=== PATIENT | female | born 1980 | race Caucasian/White ===

== ENCOUNTER 2024-03-09 01:07 | Outpatient (CLI) | payer BC, SELFPAY ==
[2024-03-09] VITALS (8 sets, daily range): BP systolic 114–148; BP diastolic 57–87; PULSE 71–88; RESP 18; TEMP 36.4
--- NOTE | 2024-03-09 04:12 | PC.OBNST ---
NST Note NST Note Start: 03/09/24 01:15 Freq: ONCE Status: Active Protocol: Document 03/09/24 04:10 DINO (Rec: 03/09/24 04:12 DEONTELOUIS [id number]) NST Note 5 Para (# of births) 4 EDC 04/07/24 Gestational Age In Weeks & Days 35 Weeks & 6 Days High Risk Factors Diabetes - Gestational Insulin ,Advanced Maternal Age,History of Labor/Delivery Patient Presented with Complaint(s) of Contractions/cramping, Decreased movement Reactive Yes RN Lucian Esparza, RN Date 03/09/24 Reactive Yes NAT Mahan RN OB NST charge Yes Complete NST Note via Write Note Yes The provider's electronic signature indicates the NST is reactive/appropriate for gestational age. *Note to provider: If an addendum is required, open the patient's chart and click on the note under the Nurse/Allied Health tab.
--- NOTE | 2024-03-26 12:22 | PC.OBNST ---
NST Note NST Note Start: 03/09/24 01:15 Freq: ONCE Status: Discharge Protocol: Document 03/09/24 04:10 DINO (Rec: 03/09/24 04:12 DEONT[place]IS [id number]) NST Note 5 Para (# of births) 4 EDC 04/07/24 Gestational Age In Weeks & Days 35 Weeks & 6 Days High Risk Factors Diabetes - Gestational Insulin ,Advanced Maternal Age,History of Labor/Delivery Patient Presented with Complaint(s) of Contractions/cramping, Decreased movement Reactive Yes RN Lucian Esparza, RN Date 03/09/24 Reactive Yes NAT Mahan RN OB NST charge Yes Complete NST Note via Write Note Yes The provider's electronic signature indicates the NST is reactive/appropriate for gestational age. *Note to provider: If an addendum is required, open the patient's chart and click on the note under the Nurse/Allied Health tab.
== END 2024-03-09 03:58 | disposition home or self-care (01) ==
LOC: OB OUT 01:08 → OB 01:08
PROVIDERS: PCP Physician Assistant Medical; Visit Provider Family Medicine
DX: O47.03 False labor before 37 completed weeks of gestation, third trimester (principal); O36.8130 Decreased fetal movements, third trimester, not applicable or unspecified; Z3A.35 35 weeks gestation of pregnancy
CPT/HCPCS: 59025; G0463

== ENCOUNTER 2024-03-29 17:24 | Outpatient (CLI) | payer BC, SELFPAY ==
[2024-03-29 17:55] VITALS: PULSE 83; O2SAT 98
[2024-03-29 18:08] VITALS: BP 134/74; PULSE 77; TEMP 36.8
--- NOTE | 2024-03-29 18:25 | P.OBHP_ITS ---
OB - H&P: HPI Labor/Induction History of Present Illness Date Seen: 03/29/24 Chief Complaint: The patient is a 43 year old 5 para 4 at 38+5 weeks gestation by LMP and confirmed with 1st trimester US, who presents with IOL for insulin dependent gestational diabetes with moderately good control. Chief complaint: Maternity Narrative: Deb Leon is a 43 year old at 38+5 weeks by LMP who is here for IOL for IDGDM. She has been having increased insulin needs over the last week and although fasting glucose levels are within range, she has about 50% out of range after meals. . is also complicated by AMA and prior delivery. She reports intermittent contractions, primarily in the evenings, but no LOF. Baby is active. NO swelling, headaches or abdominal pain. History of Present Dating criteria: based on LMP care: good care Ultrasounds: normal 1st trimester US and normal mid trimester US complications: gestational diabetes Labs Blood type: O (+) positive Rubella: immune RPR/VDLR: nonreactive GBS status: positive HBsAG: negative Review of Systems Status of ROS: Reports: 10 or more systems reviewed and unremarkable except as noted in History and below Meds Home Medications and Allergies Home Medications Medication Instructions Recorded Confirmed Type aspirin 81 mg chewable tablet 1 tab PO DAILY 12/17/23 03/29/24 History vitamin 1 tab PO DAILY 12/17/23 03/29/24 History no.76-iron,carbonyl 29 mg iron-folic acid 1 mg tablet (Prenatabs Rx) progesterone micronized 100 mg 1 insert vaginal QHS 12/17/23 03/29/24 History vaginal insert acetone (urine) test (Ketostix 03/09/24 03/09/24 History strips) blood sugar diagnostic (Accu-Chek 03/09/24 03/09/24 History Guide test strips) blood-glucose sensor (FreeStyle 03/09/24 03/09/24 History Alvin 3 Sensor device) ferrous sulfate 325 mg (65 mg 325 mg PO Q OTHER DAY 03/09/24 03/29/24 History iron) tablet (Feosol) insulin glargine 100 unit/mL (3 unit subcut 03/29/24 History mL) subcutaneous pen (Lantus Solostar U-100 Insulin) Allergies Allergy/AdvReac Type Severity Reaction Status Date / Time sertraline [From Zoloft] Allergy Intermediate Verified 12/17/23 09:20 OB - H&P: Exam Physical Exam: Vital signs: Temp Pulse BP Pulse Ox 98.3 F 77 134/74 98 03/29/24 18:08 03/29/24 18:08 03/29/24 18:08 03/29/24 17:55 Constitutional: Constitutional: no acute distress and mild distress Routine HEENT Exam: Head: Present atraumatic and normal inspection Eye: Present conjunctival injection, EOMI, normal appearance and PERRL ENT: Present mucous membranes moist Routine Neck Exam: Neck: Present full ROM Routine Respiratory Exam: Respiratory: Present CTA bilaterally Routine Cardiovascular Exam: Cardiovascular: RRR Detailed Labor and Delivery Exam: Patient Gravid: Yes Dilation (cm): 4 Effacement (%): 80 Cervix position: mid Consistency: soft Cervical ripeness score: 11 Contraction frequency (min): 0 Fetus (Single): Station: 0 Amniotic Membrane Status: intact Heart Rate Baseline: 130 Monitor Accelerations: Present Monitor Decelerations: None Correction Variability: Moderate (6-25) Routine Skin Exam: Present intact Routine Neurological Exam: Present alert, oriented X3 and CN II-XII intact Routine Psychiatric Exam: Present normal affect and normal thought process OB - Problem Based A/P Additional Plan (1) Term : Status: Acute (2) Insulin dependent gestational diabetes mellitus (GDM), antepartum: Status: Acute (3) AMA (advanced maternal age) multigravida 35+: Status: Acute Plan Cervix is considerably more favorable than last week's check. Recommend sleeping at home tonight, returning in AM for IV abx and pitocin per protocol. Diabetes monitoring and insulin per protocol. Epidural per patient request. Delivery/Labor/Induction Plan Plan: induction Induction method: per pitocin protocol (In AM)
--- NOTE | 2024-03-29 18:57 | PC.OBNST ---
NST Note NST Note Start: 03/29/24 17:40 Freq: ONCE Status: Active Protocol: Document 03/29/24 18:55 FITZ (Rec: 03/29/24 18:57 FITZ [id number]) NST Note 5 Para (# of births) 4 EDC 04/07/24 Gestational Age In Weeks & Days 38 Weeks & 5 Days High Risk Factors High Blood Pressure - Gestational,Diabetes - Gestational Insulin Patient Presented with Complaint(s) of Other Other Complaints Patient here for possible IOL. Cervix favorable, sent home and will return in the morning . Reactive Yes Appropriate for Gestational Age Yes NAT Fleming, RN Date 03/29/24 Reactive Yes Appropriate for Gestational Age Yes NAT James RN Date 03/29/24 OB NST charge Yes Complete NST Note via Write Note Yes The provider's electronic signature indicates the NST is reactive/appropriate for gestational age. *Note to provider: If an addendum is required, open the patient's chart and click on the note under the Nurse/Allied Health tab.
== END 2024-03-29 18:55 | disposition home or self-care (01) ==
LOC: OB 18:44 → OB CLI 03-31 14:08 → OB 03-31 14:09
PROVIDERS: PCP Physician Assistant Medical; Visit Provider Family Medicine
DX: O09.523 Supervision of elderly multigravida, third trimester (principal); Z3A.35 35 weeks gestation of pregnancy
CPT/HCPCS: 59025; G0463

== ENCOUNTER 2024-03-30 08:06 | Inpatient (IN) | payer BC, SELFPAY ==
[2024-03-30] VITALS (38 sets, daily range): BP systolic 116–165; BP diastolic 56–97; PULSE 77–198; TEMP 36.5–36.9; O2SAT 85–99; BMI 35.7
[2024-03-30] MEDS: AMPICILLIN 2 GM in 0.9 % SODIUM CHLORIDE Mini-bag 100 ML IVPB (08:25)
[2024-03-30 08:29] LABS: Basophils Absolute Auto 0.03 K/uL (0.00-0.30); Basophils Percent Auto 0.3 % (0.0-3.0); Eosinophils Percent Auto 0.9 % (0.0-7.0); Immature Granulocytes Abs Auto 0.04 K/uL (0.00-0.30); Immature Granulocytes Pct Auto 0.4 %; Mean Corpuscular HGB Conc 33 gm/dL (32-36); Mean Corpuscular Hemoglobin 27 pg (26-34); Mean Corpuscular Volume 81 fL (80-100); Monocytes Percent Auto 5.8 % (0.0-11.0); Neutrophils Percent Auto 82.6 % (42.0-72.0); Platelet Count* 161 K/uL (140-440); RDW Coefficient of Variation % 17.8 % (11.5-15.5); Red Blood Count 4.09 m/uL (4.00-5.20); White Blood Count* 10.54 K/uL (4.50-11.00)
[2024-03-30 08:38] LABS: Slide Review Reflex No
[2024-03-30] MEDS: LACTATED RINGERS 1000 ML 1,000 ML 125 ML IV ×2 (10:31→15:51)
[2024-03-30] MEDS: OXYTOCIN 30 unit/500 ML in NS 30 UNIT/500 ML BAG IVPB (10:32)
[2024-03-30] MEDS: AMPICILLIN 1 GM in 0.9 % SODIUM CHLORIDE Mini-bag 100 ML IVPB (12:33)
--- NOTE | 2024-03-30 12:47 | P.OBPN_ITS ---
Subjective Date Seen: 03/30/24 Narrative: Deb is a at 38+6 weeks who returns for IOL. She came in last night for cervical ripening prior to IOL for IDGDM with poor glucose control, however her Sutton score was significantly higher (11) than had been in clinic last week, so was discharged to home and returned this morning for IOL. She reports no significant contractions overnight, no LOF, baby is active. See H&P from 03/29/24 for details. Antibiotics have been started for +GBS and pitocin per protocol. Initial BG within range. AROM performed with a large amount of clear fluid. Objective Vital Signs: Last Vital Signs Temp 98.2 F 03/30/24 08:50 Pulse 80 03/30/24 08:50 BP 135/73 03/30/24 08:50 Pulse Ox 99 03/30/24 08:49 Pelvic Exam Dilation (cm): 5 Effacement (%): 80 Station: 0 Contractions Monitor mode: External Contraction Frequency: 2-4 Contraction pattern: Regular Contraction intensity: Mild Pitocin Rate (mU/min): 3 Assessment Assessment: induction ongoing Station: 0 Amniotic Membrane Status: AROM Status: Category l Heart Rate Baseline: 140 Senior Care Variability: Moderate (6-25) Monitor Accelerations: Present Monitor Decelerations: None Plan Plan: Patient has undergone AROM, will continue pitocin per protocol if needed. Glucose monitoring/treatment per protocol. Continue ampicillin for +GBS. Anticipate .
[2024-03-30] MEDS: ROPIVACAINE 0.2% 100 ml 100 ML 12 MG EPIDURAL (15:49)
--- NOTE | 2024-03-30 15:55 | P.ANBPRC_ITS ---
[facility] Medical History (Updated 03/29/24 @ 18:31 by Marian Mckeon MD) Term ?Z34.90 - Encounter for supervision of normal , unspecified, unspecified trimester (ICD-10) History of vaginal delivery Benzodiazepine overdose (2014) ?T42.4X1A - Poisoning by benzodiazepines, accidental (unintentional), initial encounter (ICD-10) Social History What is your current living situation?: I presently have a place to live Problems where you live: no known problems In the past 12 months, utilities in danger of being shut off: no In past 12 months, lack of transportation kept you from medical appts, meetings, work, or getting things needed for daily living: no In the past 12 mos, have been you worried that your food would run out before you had money to buy more?: never true In the past 12 mos, the food you bought just didn't last and you didn't have money to buy more?: never true Smoking Status: Current every day smoker How often does anyone, including family, friends and others, physically hurt you : never How often does anyone, including family, friends and others, insult or talk down to you: never How often does anyone, including family, friends and others, threaten you with harm: never How often does anyone, including family, friends and others, scream or curse at you: never Meds Home Medications and Allergies Home Medications Medication Instructions Recorded Confirmed Type aspirin 81 mg chewable tablet 1 tab PO DAILY 12/17/23 03/30/24 History vitamin 1 tab PO DAILY 12/17/23 03/30/24 History no.76-iron,carbonyl 29 mg iron-folic acid 1 mg tablet (Prenatabs Rx) progesterone micronized 100 mg 1 insert vaginal QHS 12/17/23 03/30/24 History vaginal insert acetone (urine) test (Ketostix 03/09/24 03/30/24 History strips) blood sugar diagnostic (Accu-Chek 03/09/24 03/30/24 History Guide test strips) blood-glucose sensor (FreeStyle 03/09/24 03/30/24 History Alvin 3 Sensor device) ferrous sulfate 325 mg (65 mg 325 mg PO Q OTHER DAY 03/09/24 03/30/24 History iron) tablet (Feosol) insulin glargine 100 unit/mL (3 18 unit subcut DAILY 03/29/24 03/30/24 History mL) subcutaneous pen (Lantus Solostar U-100 Insulin) Allergies Allergy/AdvReac Type Severity Reaction Status Date / Time sertraline [From Zoloft] Allergy Intermediate Verified 12/17/23 09:20 Results Labs Labs: Laboratory Results - last 24 hr 03/30/24 08:14 WBC 10.54 RBC 4.09 Hgb 11.0 L Hct 33.0 MCV 81 MCH 27 MCHC 33 RDW Coeff of Tequila 17.8 H Plt Count 161 Neut % (Auto) 82.6 H Lymph % (Auto) 10.0 L [place] % (Auto) 5.8 Eos % (Auto) 0.9 Baso % (Auto) 0.3 Neut # (Auto) 8.70 H Lymph # (Auto) 1.10 [place] # (Auto) 0.60 Eos # (Auto) 0.10 Baso # (Auto) 0.03 Abs Immat Gran (auto) 0.04 Imm/Tot Granulo (auto) 0.4 Blood Type O Positive Antibody Screen NEGATIVE Vital Signs Vital Signs: Last Vital Signs Temp 98.1 F 03/30/24 13:27 Pulse 83 03/30/24 15:54 BP 152/97 H 03/30/24 15:54 Pulse Ox 93 03/30/24 15:40 Weight: 97.522 kg Height: 165.1 cm Anesthesia Procedures Epidural Insertion Patient Location: OB Start Time: 15:30 Stop Time: 15:56 Start Date: 03/30/24 Stop Date: 03/30/24 Reason for Block: procedure for pain Patient Position: sitting Performed By: Brendan Aleman Preanesthetic Checklist: IV checked, risks and benefits discussed, monitors and equipment checked, pre-op evaluation, timeout performed and anesthesia consent Prep: chlorhexidine gluconate Monitoring: blood pressure monitoring, continuous pulse oximetry and heart rate Approach: midline Vertebral Space: lumbar (1-5) Epidural Technique: OTTO saline Needle Type: Tuohy needle Injection Technique: continuous catheter Needle gauge: 17 Needle Length (cm): 10 cm Needle Insertion Depth (cm): 7 Catheter Gauge: 19 Catheter Type: multi-orifice Catheter at skin depth (cm): 13 Test Dose Result: negative and lidocaine 1.5% with epinephrine 1 to 200,000
[2024-03-30] MEDS: BUPIVACAINE 0.25% PF 10 ML 10 ML ML EPIDURAL (15:58)
--- NOTE | 2024-03-30 16:01 | PM.OBPNL ---
Subjective Date Seen: 03/30/24 Narrative: Deb is a 43 yo at 38+6 here for IOL for poorly controlled IDGDM. She underwent AROM around 1230, contractions became stronger around 1430 and is now getting an epidural. Objective Vital Signs: Last Vital Signs Temp 97.7 F 03/30/24 15:56 Pulse 93 03/30/24 15:57 BP 129/64 03/30/24 15:57 Pulse Ox 93 03/30/24 15:40 Pelvic Exam Dilation (cm): 6 Effacement (%): 90 Station: 1 Contractions Monitor mode: External Contraction pattern: Regular Contraction intensity: Mild Pitocin Rate (mU/min): 5 Assessment Station: 0 Amniotic Membrane Status: AROM Status: Category l Heart Rate Baseline: 140 Drill Operator Pneumatic Variability: Moderate (6-25) Monitor Accelerations: Absent Monitor Decelerations: Variable Plan Plan: Continue pitocin per protocol. Continue glucose monitoring (all still within range) Abx for +GBS Anticipate .
--- NOTE | 2024-03-30 18:16 | W.PM.VAGDEL1 ---
Procedure Delivery date: 03/30/24 Procedure Done: Global Events: GDMA2, Labor Induction and AMA Intrapartal Events: Labor Induction Delivery augmentation: rupture of membranes Delivery monitor: external FHT Route of delivery: Laceration description: None Estimated blood loss (mL): 25 Anesthesia type: Epidural Disposition: floor Narrative: The patient is a 43 year-old admitted on 03/30/2024 at 38 Weeks, 5 Days gestation for IOL for poorly controlled diabetes.? Cervical exam on admission was 4 cm/80 % effaced/0 station with membranes intact in vertex presentation.? Contractions were irregular and mild.? heart rate demonstrated baseline 140 bpm with moderate variability, + accelerations, - decelerations; a category 1 tracing.? AROM occurred at 1238 with clear fluid. ? Labor Analgesia:? epidural ? Pitocin:? yes ? Labor onset:? 1400 ? Complete:? 1650 ? Pushing:? 1656 ? heart tones during second stage were category 2. ? At 1804 a viable female infant delivered in vertex OP presentation over intact perineum via spontaneous vaginal delivery.? Infant was placed on maternal abdomen.? Cord was clamped and cut immediately due to poor respiratory effort by infant who was brought immediately to the warmer.? Nose and mouth were bulb suctioned.? Infant weight pending.? 3 at 1 minute and 9 at 5 minutes.? Shoulder dystocia: no.? Nuchal cord: no. ? Placenta delivered spontaneously and complete at 1806 with a 3 vessel cord. ? Mother and were stable after delivery. ? Lacerations:? none. ? Blood loss: 25 mL. Blood loss measurement type: QBL ? Sponge and needles counts are correct.
[2024-03-30] MEDS: IBUPROFEN 600 MG TABLET PO (21:00)
[2024-03-30] MEDS: ACETAMINOPHEN 500 MG TABLET 1000 MG PO (22:29)
[2024-03-31] VITALS (7 sets, daily range): BP systolic 118–158; BP diastolic 64–87; PULSE 67–76; RESP 16–18; TEMP 36.6–37.1; O2SAT 97–99
[2024-03-31] MEDS: IBUPROFEN 600 MG TABLET PO ×3 (04:40→22:08)
[2024-03-31 06:25] LABS: Hemoglobin* 10.1 gm/dL (12.0-16.0)
[2024-03-31] MEDS: ACETAMINOPHEN 500 MG TABLET 1000 MG PO (07:58)
[2024-03-31] MEDS: DOCUSATE SODIUM 100 MG CAPSULE PO (07:59)
--- NOTE | 2024-03-31 08:21 | P.OBPN_ITS ---
OB - PN:Subj Subjective Date Seen: 03/31/24 Interval history: Deb is a 43 pp day #1 [facility] a [facility]. She had induction for poorly controlled IDGDM. During labor she had some high BP readings and has continued to have elevated BP readings overnight and this morning. She reports being told that she may have borderline high BP when she wasn't . She reports her perineum feels swollen/sore, but otherwise is doing well. NO complaints of headaches, abdominal pain. Her swelling in the feet is improving. Patient comments OB post-: pain well controlled and tolerating diet [place] infant status: doing well [place] feeding status: breast and bottle feeding OB - PN: Obj Exam Physical Exam: Vital signs: Temp Pulse Resp BP Pulse Ox O2 Del Method 97.9 F 67 16 144/85 H 99 Room Air 03/31/24 07:48 03/31/24 07:48 03/31/24 07:48 03/31/24 07:48 03/31/24 07:48 03/31/24 07:48 Constitutional: Constitutional: no acute distress Routine HEENT Exam: Head: Present atraumatic Routine Abdominal Exam: Fundus: Present firm (at umbilicus) Comments: abdomen soft and non tender OB - PN: Obj Data Labs Labs: Laboratory Results - last 24 hr 03/30/24 03/31/24 08:14 05:38 WBC 10.54 RBC 4.09 Hgb 11.0 L 10.1 L Hct 33.0 MCV 81 MCH 27 MCHC 33 RDW Coeff of [place]equila 17.8 H Plt Count 161 Neut % (Auto) 82.6 H Lymph % (Auto) 10.0 L [place] % (Auto) 5.8 Eos % (Auto) 0.9 Baso % (Auto) 0.3 Neut # (Auto) 8.70 H Lymph # (Auto) 1.10 [place] # (Auto) 0.60 Eos # (Auto) 0.10 Baso # (Auto) 0.03 Abs Immat Gran (auto) 0.04 Imm/Tot Granulo (auto) 0.4 Blood Type O Positive Antibody Screen NEGATIVE OB - PN: A/P Delivery Assessment and Plan (1) Vaginal delivery: Status: Acute Plan PP [facility] GDM HTN chronic vs gestational, r/o pre-e Plan day: 1 Plan: routine care Comments: Start nifedipine 30 mg/day Preeclampsia labs to r/o pp pre-e Blood sugar monitoring per protocol, did not get a fasting this morning. Likely d/c tomorrow morning.
[2024-03-31] MEDS: NIFEdipine 30 MG TAB.ER.24 PO ×2 (09:29→20:37)
[2024-03-31 09:46] LABS: Creatinine* 0.7 mg/dL (0.5-1.5); Est. Creatinine Clearance* 94.21; Estimated Glomerular Filt Rate 111 ml/min
[2024-03-31 09:47] LABS: Alanine Aminotransferase* 18 U/L (4-35); Aspartate Amino Transferase* 32 U/L (12-35)
[2024-03-31 09:54] LABS: Basophils Absolute Auto 0.04 K/uL (0.00-0.30); Basophils Percent Auto 0.4 % (0.0-3.0); Eosinophils Absolute Auto 0.12 K/uL (0.00-0.50); Eosinophils Percent Auto 1.3 % (0.0-7.0); Hematocrit 31.3 % (33.0-51.0); Hemoglobin* 10.1 gm/dL (12.0-16.0); Immature Granulocytes Abs Auto 0.08 K/uL (0.00-0.30); Immature Granulocytes Pct Auto 0.9 %; Lymphocytes Percent Auto 12.2 % (20-44); Mean Corpuscular HGB Conc 32 gm/dL (32-36); Mean Corpuscular Hemoglobin 26 pg (26-34); Mean Corpuscular Volume 82 fL (80-100); Neutrophils Percent Auto 79.2 % (42.0-72.0); Platelet Count* 141 K/uL (140-440); RDW Coefficient of Variation % 18.2 % (11.5-15.5); Red Blood Count 3.82 m/uL (4.00-5.20)
[2024-03-31 10:01] LABS: Slide Review Acceptable Review (Acceptable); Slide Review Reflex Yes
--- NOTE | 2024-03-31 13:39 | PM.ANPOST ---
Post Anesthesia Note Post Anesthesia Note Patient seen: Inpatient Respiratory Status: adequate Cardiovascular Status: adequate Mental Status: baseline Pain: adequate Temp: baseline Anesthetic awareness: N/A Complications: none Follow care: none
[2024-03-31] MEDS: SODIUM CHLORIDE 0.9 % (FLUSH) 10 ML SYRINGE IVF (17:15)
[2024-03-31 23:34] LABS: Rapid Plasma Reagin (RPR) Non Reactive (Non Reactive)
[2024-04-01 00:05] VITALS: BP 144/76; PULSE 72; RESP 16; TEMP 37.1; O2SAT 98
[2024-04-01 04:50] VITALS: BP 130/78; PULSE 71; RESP 16; TEMP 36.6; O2SAT 97
[2024-04-01] MEDS: IBUPROFEN 600 MG TABLET PO (08:05)
[2024-04-01] MEDS: DOCUSATE SODIUM 100 MG CAPSULE PO (08:07)
[2024-04-01 08:24] LABS: Glucose Fasting 92 mg/dl (70-95)
[2024-04-01] MEDS: NIFEdipine 30 MG TAB.ER.24 60 MG PO (09:44)
[2024-04-01 09:46] VITALS: BP 113/73; PULSE 65; RESP 16; TEMP 37.1; O2SAT 98
[2024-04-01 11:05] LABS: Glucose 2 Hour 116 mg/dl (70-155)
[2024-04-01 11:59] VITALS: BP 131/73; PULSE 79; RESP 16; TEMP 36.7; O2SAT 99
[2024-04-01 14:10] VITALS: BP 129/78
[2024-04-01] MEDS: ACETAMINOPHEN 500 MG TABLET 1000 MG PO (14:10)
--- NOTE | 2024-04-01 14:20 | PM.OBDSVD1 ---
DS: Providers Provider Date Seen: 04/01/24 Date of admission: 03/30/24 08:06 Primary care physician: Ashlee Monreal PA-C Admitting Clinician: Marian Mckeon MD Attending Physician on discharge: Marian Mckeon MD DS: Diagnosis Discharge Diagnosis (1) Vaginal delivery: Status: Acute Problem details: Recovering well. Routine cares. (2) Insulin dependent gestational diabetes mellitus (GDM), antepartum: Status: Acute Problem details: 2 hour GTT negative. Off insulin since delivery. (3) Gestational hypertension: Status: Acute Problem details: Blood pressures high after delivery. Nifedipine started and increased due to persistent hypertension. Tolerating 60 mg and BP in range. Monitor closely at home and adjust if > 140/90. Exam Const: Vital Signs, click to edit/add: Vital Signs - 24 hr 03/31/24 17:03 03/31/24 19:55 04/01/24 00:05 Temperature 98.5 F 98.7 F 98.7 F Pulse Rate [Pulse Oximeter] 69 69 72 Respiratory Rate 16 16 16 Blood Pressure [Ri ght Arm] 158/79 H 148/78 H 144/76 H Pulse Oximetry 97 98 98 Oxygen Delivery Me thod Room Air Room Air Room Air 04/01/24 04:50 04/01/24 09:46 04/01/24 11:59 Temperature 97.8 F 98.8 F 98.0 F Pulse Rate [Pulse Oximeter] 71 65 79 Respiratory Rate 16 16 16 Blood Pressure [Ri ght Arm] 130/78 113/73 131/73 Pulse Oximetry 97 98 99 Oxygen Delivery Me thod Room Air Room Air Room Air Documenting provider has reviewed patient's vital signs: yes Common normals: no apparent distress HENMT: Common normals: normocephalic Head and scalp: normocephalic Resp: Common normals: normal respiratory effort and clear to auscultation bilaterally Auscultation: clear to auscultation bilaterally Cardio: Common normals: regular rate and regular rhythm Rate: regular rate Rhythm: regular rhythm Heart sounds: no murmurs GI: Common normals: soft to palpation Palpation: soft : Uterus: 2/U Other: Firm mass present above pubic bone consistent with known history of fibroid Extremity: Common normals: normal to inspection, no clubbing, cyanosis or edema, no calf tenderness and no pedal edema OB - DS: Summary Hospital Course Hospital Course: The patient is a 43 year old G 5 P 5 at 38 weeks gestation that was admitted to the Center on 03/30/24 for IOL. She had an uncomplicated vaginal delivery. She delivered a viable female infant. She is . She had some elevated pressures after delivery and was started on nifedipine and dose was increased. the patient has done well. Peripartum Data Infant delivery method: Vaginal [place] Infant Gender: Female Infant Discharge Plan: Home Status at Discharge Functional status at discharge: independent ambulation Overall status at discharge: patient is back to baseline Time Spent with Patient Time attestation: Total time spent providing and/or coordinating discharge services: 40 minutes Time spent: Greater than 30 minutes Specific discharge activities: Coordinating GDM and hypertension plans Discharge Plan Discharge Disposition: Home, Self-Care Date of Admission: 03/30/24 08:06 Primary Care Provider: Ashlee Monreal Condition: Stable Anticipated Discharge Date/Time: 04/01/24 14:28 Discharge Medications: New nifedipine 30 mg Tablet Extended Release 24hr 60 mg PO DAILY Qty: 30 0RF Continued Prenatabs Rx 29 mg iron- 1 mg tablet 1 tab PO DAILY ferrous sulfate [Feosol] 325 mg (65 mg iron) tablet 325 mg PO Q OTHER DAY Discontinued aspirin 81 mg tablet,chewable 1 tab PO DAILY progesterone micronized 100 mg insert 1 insert vaginal QHS insulin glargine [Lantus Solostar U-100 Insulin] 100 unit/mL (3 mL) insulin pen 18 unit subcut DAILY No Action (DME) Accu-Chek Guide test strips Strip MISCELLANEOUS DAILY (DME) Ketostix Strip MISCELLANEOUS DAILY (DME) FreeStyle Alvin 3 Sensor Device MISCELLANEOUS Discharge Orders: Discharge Order (Routine); Ordered 04/01/24 Ordered By: Roger Oreilly Patient Education: Vaginal Delivery (DC) Activity Level: No Restrictions Discharge Diet: Regular Follow Up Appointments: Ashlee Monreal PA-C [Primary Care Provider] - (Schedule with Dr. Mckeon in 6 weeks for check. Also needs BP check in 3 days. ) Forms: [employer] Info Instructions
[2024-04-01 15:23] LABS: Glucose Fasting Check 92 mg/dl (60-115)
[2024-04-01 16:41] VITALS: BP 134/72; TEMP 37.1
== END 2024-04-01 16:50 | disposition home or self-care (01) | DRG 560 ==
PROVIDERS: Admitting Provider Family Medicine; PCP Physician Assistant Medical; Visit Provider Family Medicine
DX: O24.424 Gestational diabetes mellitus in childbirth, insulin controlled (principal); Z3A.38 38 weeks gestation of pregnancy; Z37.0 Single live birth; O13.5 Gestational [pregnancy-induced] hypertension without significant proteinuria, complicating the puerperium; O99.824 Streptococcus B carrier state complicating childbirth
CPT/HCPCS: 01967; 36415; 82565; 82947; 82950; 84450; 84460; 85018; 85025; 86592; 86850; 86900; 86901; 88307; A9270; J0290; J0665; J2371; J2795; J7120